=== PATIENT | female | born 1985 | race Hispanic/Latino ===

== ENCOUNTER 2018-01-09 03:16 | Emergency (ER) | payer MEDICAID, OTHER ==
[2018-01-09] MEDS ORDERED: DiphenhydrAMINE HCL 50 MG/ML VIAL ONE (03:49)
[2018-01-09] MEDS ORDERED: METHYLPREDNISOLONE SOD SUCC 125MG/2ML VIAL ONE (03:50)
[2018-01-09] MEDS ORDERED: FAMOTIDINE/PF 20 MG/2 ML VIAL IV ONE (03:50)
[2018-01-09 04:15] LABS: BASOPHILS % (AUTO) 0.9 % (0.0-5.0); EOSINOPHILS % (AUTO) 2.2 % (0.0-8.0); HEMATOCRIT 42.9 % (36-48); LYMPHOCYTES % (AUTO) 10.1 % (21.0-51.0); MEAN CORPUSCULAR HEMOGLOBIN 29.9 pg (27.0-33.0); MEAN CORPUSCULAR HGB CONC 33.3 g/dL (32.0-36.0); MEAN CORPUSCULAR VOLUME 89.8 fL (79-99); MONOCYTES % (AUTO) 9.5 % (3.0-13.0); NEUTROPHILS % (AUTO) 77.3 % (40.0-77.0); PLATELET COUNT (AUTO) 311 K/uL (130-400); RED BLOOD CELL COUNT(AUTO) 4.78 MIL/uL (4.00-5.50); RED CELL DISTRIBUTION WIDTH 12.8 % (11.0-15.5)
[2018-01-09] MEDS ORDERED: VANCOMYCIN 1GM+NS 250ML 250 ML IV ONE (05:30)
[2018-01-09] MEDS ORDERED: KETOROLAC TROMETHAMINE 15MG/ML ONE (05:31)
== END 2018-01-09 07:50 | disposition home or self-care (01) ==
LOC: EDH 03:16
DX: L03.211 Cellulitis of face (principal); R60.0 Localized edema; Z87.891 Personal history of nicotine dependence
CPT/HCPCS: 36415; 85025; 93005; 96365; 96366; 96375; 99285; J1200; J1885; J2930; J3370; J3490

== ENCOUNTER 2018-01-12 01:10 | Emergency (ER) | payer MEDICAID, OTHER ==
[2018-01-12] MEDS ORDERED: DEXAMETHASONE SOD PHOSPHATE 10MG/ML 1ML VIAL ONE (01:54)
[2018-01-12] MEDS ORDERED: DiphenhydrAMINE HCL 50 MG/ML VIAL ONE (01:54)
[2018-01-12] MEDS ORDERED: AMPICILLIN SODIUM/SULBACTAM NA 1.5GM VIAL ONE (01:55)
[2018-01-12] MEDS ORDERED: SODIUM CHLORIDE 0.9% 100 ML IV ONE (01:55)
== END 2018-01-12 04:16 | disposition home or self-care (01) ==
LOC: EDH 01:10
DX: L03.211 Cellulitis of face (principal); Z88.1 Allergy status to other antibiotic agents
CPT/HCPCS: 70486; 96365; 96366; 96375; 99285; J0295; J1100; J1200

== ENCOUNTER 2022-08-18 18:53 | Emergency (ER) | payer MEDICAID, OTHER ==
[~2022-08-18] VITALS: Ht 160 cm; Wt 90.7 kg
[2022-08-18] MEDS ORDERED: DiphenhydrAMINE HCL 50 MG/ML VIAL IV ONE (20:00)
[2022-08-18] MEDS ORDERED: SOLU-MEDROL 125MG VIAL IM ONE (20:00)
[2022-08-18] MEDS ORDERED: EPINEPHRINE PF 1MG (1:1,000) 1 MG/ML AMP IM ONE (20:00)
[2022-08-18] MEDS ORDERED: LORA10TA7 PO (21:08)
[2022-08-18] MEDS ORDERED: HYDR28.32 TP (21:08)
[2022-08-18 21:54] VITALS: BP 139/84
== END 2022-08-18 22:27 | disposition home or self-care (01) ==
LOC: EDH 18:53
DX: T78.49XA Other allergy, initial encounter (principal); R21 Rash and other nonspecific skin eruption; Z79.899 Other long term (current) drug therapy; X58.XXXA Exposure to other specified factors, initial encounter
CPT/HCPCS: 99284; J1200; J2930; J0171